=== PATIENT | male | born 1940 | race Caucasian/White ===

== ENCOUNTER 2017-01-27 09:25 | Outpatient (CLI) | payer OTHER ==
[2017-01-27 10:09] LABS: eGFR (African) > 60; eGFR (Non-African) 57
== END 2017-01-27 09:26 ==
LOC: LAB 09:25
PROVIDERS: ATTEND Family Medicine
DX: E11.9 Type 2 diabetes mellitus without complications (principal); E03.9 Hypothyroidism, unspecified
CPT/HCPCS: 36415; 80053; 80061; 82043; 83036; 84443

== ENCOUNTER 2017-02-10 14:32 | Outpatient (CLI) | payer OTHER ==
--- NOTE | 2017-02-13 09:14 | OP Clinic Progress Note ---
REFERRING PHYSICIAN: Dr. April Frias REASON FOR VISIT: This 76-year-old man is seen accompanied by his daughter. He lived in [place] for a while and saw a ear, nose, and throat doctor there within the last 2 years. He has had a marked hearing loss and he wears hearing aids. He states that he is not able to hear any better with his hearing aids. He does not like using them and does not use hearing aids. Apparently, they are fairly good quality with each one being several thousand dollars. He does not recall much prior history. Both ear canals are clear and clean. There is no obstruction of the ear canals. The left eardrum is normal. I do not see any middle ear fluid. 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 It does not look like a cholesteatoma. I do not see any perforation. The bone conduction is greater than air conduction in the right ear and the air conduction is greater than bone conduction in the left ear. However, the Rinne refers somewhat to the left ear. 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 I do not have an audiogram to see. I discussed with the patient and his daughter who is here about the issues. She feels that he has a fairly significant clinical hearing loss and misses out on a lot of things and it significantly distorts ability to communicate. I sat 5 feet from the patient and fairly loud and was able to communicate but other than that, being 10 or 15 feet away from him and talking in a medium loud voice , he has a hard time hearing and understanding and communicating. PLAN: Because the right ear appears to have a conductive loss, that maybe at least part of the problem. Clinically, it is the poorer hearing ear. Just from an ear point of view, with the tuning forks having bone conduction significantly louder than air conduction in that right ear, a surgical exploration of the ear with a chance to have improved hearing makes otologic sense. I went over the pros and cons and risks. Generally, that type of surgery would tend to be an outpatient type of surgery with vertigo being about the only thing that might keep the patient in the hospital overnight. I talked with the patient and his daughter about getting an audiogram where I can make a clearer delineation of the issues for him. I have pointed out it is perfectly fine to continue as he is with no hearing amplification or to use his hearing aids, which he has not done, or he needs to consider right middle ear exploration with possible improvement of his hearing. The patient is going to consider his issues. I do not see that medication or drops has any value in benefiting the patient. Diagrams were used for a better explanation. His daughter voices appreciation for a clearer delineation of the issues. cc: Dr. April SUTHERLAND
== END 2017-02-10 14:33 ==
LOC: ENT 14:32
PROVIDERS: ATTEND Otolaryngology
DX: H90.6 Mixed conductive and sensorineural hearing loss, bilateral (principal); H74.01 Tympanosclerosis, right ear
CPT/HCPCS: G0463

== ENCOUNTER 2017-05-06 10:51 | Outpatient (CLI) | payer OTHER ==
[2017-05-06 11:22] LABS: BASOPHILS % 0.7 (0.0-1.5); EOSINOPHILS % 19.8 % (0.0-6.8); MEAN CORPUSCULAR HEMOGLOBIN 30.4 pg (28.0-34.0); MEAN CORPUSCULAR VOLUME 91.5 fl (80.0-100.0); MONOCYTES % 6.2 % (0.0-11.0); NEUTROPHILS # 4.1 # k/uL (1.4-7.7)
[2017-05-06 11:55] LABS: eGFR (African) > 60; eGFR (Non-African) 52
== END 2017-05-06 10:52 ==
LOC: LAB 10:51
PROVIDERS: ATTEND Family Medicine
DX: E11.9 Type 2 diabetes mellitus without complications (principal); E03.9 Hypothyroidism, unspecified; E87.6 Hypokalemia; E53.8 Deficiency of other specified B group vitamins
CPT/HCPCS: 36415; 80048; 82607; 83036; 84443; 85025

== ENCOUNTER 2017-08-23 13:56 | Outpatient (CLI) | payer OTHER | END 2017-08-23 13:57 | LOC: LAB 13:56 | PROVIDERS: ATTEND Family Medicine | DX: E11.9 Type 2 diabetes mellitus without complications (principal) | CPT/HCPCS: 36415; 83036 ==

== ENCOUNTER 2018-02-09 08:28 | Outpatient (CLI) | payer OTHER ==
[2018-02-09 09:53] LABS: eGFR (African) > 60; eGFR (Non-African) 52
== END 2018-02-09 08:30 ==
LOC: LAB 08:28
PROVIDERS: ATTEND Family Medicine
DX: E11.9 Type 2 diabetes mellitus without complications (principal)
CPT/HCPCS: 36415; 80053; 80061; 83036

== ENCOUNTER 2018-08-30 14:13 | Outpatient (CLI) | payer OTHER ==
[2018-08-30 14:57] LABS: MEAN CORPUSCULAR HEMOGLOBIN 30.1 pg (28.0-34.0)
[2018-08-30 15:22] LABS: eGFR (Non-African) 52
== END 2018-08-30 14:14 ==
LOC: RT 14:13
PROVIDERS: ATTEND Family Medicine
DX: R53.83 Other fatigue (principal); E03.9 Hypothyroidism, unspecified; E11.9 Type 2 diabetes mellitus without complications; Z85.46 Personal history of malignant neoplasm of prostate
CPT/HCPCS: 36415; 80053; 83036; 84153; 84443; 85027

== ENCOUNTER 2019-07-17 12:05 | Outpatient (CLI) | payer OTHER ==
[2019-07-17 13:38] LABS: eGFR (Non-African) 56
[2019-07-17 13:39] LABS: HDL 34 mg/dL (>40)
[2019-07-18 07:51] LABS: A1C 7.8 % (<5.7)
== END 2019-07-17 12:07 ==
LOC: LAB 12:05
PROVIDERS: ATTEND Family Medicine
DX: E11.9 Type 2 diabetes mellitus without complications (principal); E03.9 Hypothyroidism, unspecified
CPT/HCPCS: 36415; 80053; 80061; 83036; 84443